=== PATIENT | male | born 1940 | race Caucasian/White ===

== ENCOUNTER → 2020-04-04 | Outpatient (CLI) | payer OTHER | END | disposition home or self-care (01) | LOC: RAD 12:56 | PROVIDERS: ATTEND Student in an Organized Health Care Education/Training Program | DX: K44.9 Diaphragmatic hernia without obstruction or gangrene (principal); K22.8 Other specified diseases of esophagus | CPT/HCPCS: 74220 ==

== ENCOUNTER 2020-06-29 18:06 | Inpatient (IN) | payer MEDICARE ==
[~2020-06-29] VITALS: Ht 172.7 cm; Wt 74.1 kg
[2020-06-29 18:19] LABS: BASOPHILS # (AUTO) 0.03 x10^3/uL (0-0.1); BASOPHILS % (AUTO) 0 % (0-1); EOSINOPHILS # (AUTO) 0.13 x10^3/uL (0-0.4); EOSINOPHILS % (AUTO) 1 % (1-7); LYMPHOCYTES % (AUTO) 19 % (22-44); MD NO; MEAN CORPUSCULAR HEMOGLOBIN 32.3 pg (27.5-34.5); MEAN CORPUSCULAR HGB CONC 33.5 g/dL (33.2-36.2); MEAN PLATELET VOLUME 7.8 fL (7.4-10.4); MONOCYTES % (AUTO) 7 % (2-9); NEUTROPHILS # (AUTO) 8.63 x10^3/uL (1.8-6.8); NEUTROPHILS % (AUTO) 73 % (42-75); PLATELET COUNT 203 x10^3/uL (130-400); RED BLOOD COUNT 5.11 x10^6/uL (4.38-5.82); RED CELL DISTRIBUTION WIDTH 13.9 % (9.4-14.8)
[2020-06-29] MEDS ORDERED: OMNIPAQUE 350 MG/ML, 100ML BOTTLE ONE (18:28)
[2020-06-29 18:30] LABS: INTERNATIONAL NORMALIZED RATIO 0.99 (0.93-1.1); PROTHROMBIN TIME 10.2 Seconds (9.6-11.5)
--- NOTE | 2020-06-29 18:41 | NUR ---
MD HAYNES IN ROOM ON EZDOCTOR MONITOR
--- NOTE | 2020-06-29 18:42 | NUR ---
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 PT HAS LEFT SIDE FACIAL DROOP AND LEFT LOWER LEG DEFICITS WITH DIFFICULTY SPEAKING/ SLURRED SPEACH. EMS REPORTS 135/78 HR 65 SPO2, 94% BS 117.
[2020-06-29] MEDS ORDERED: ALTEPLASE IV ONE (19:00)
[2020-06-29] MEDS ORDERED: ALTEPLASE 7 MG in SYRINGE 1 EA IVPush ONE (19:00)
--- NOTE | 2020-06-29 19:00 | NUR ---
ASSUMED CARE OF THIS PATIENT AT THIS TIME, RECIEVED REPORT FROM THANH. PT HAS NIH OF 6 AT THIS TIME FOR SLURRED SPEECH AND LEFT SIDED WEAKNESS AND FACIAL DROOP. OTHERWISE NEURO IS INTACT.
--- NOTE | 2020-06-29 19:46 | NUR ---
1930 ACTIVASE STOPPED DUE TO ACUTE NEURO CHANGES. INCREASED SLURRED SPEECH AND LEFT SIDED WEAKNESS.
--- NOTE | 2020-06-29 19:52 | NUR ---
[address], PT RECIEIVING CT.
--- NOTE | 2020-06-29 19:52 | NUR ---
1951 PTS [facility]PA RESTARTED RADIAOLOGIST CALLED AND INFORMED OF NO ACTIVE BLEED.
--- NOTE | 2020-06-29 19:55 | NUR ---
PT IS REPORTING THAT HIS PIN AND NEEDLES RESOLVE
[2020-06-29] MEDS ORDERED: FAMO20TA7 PO (20:07)
[2020-06-29] MEDS ORDERED: ESCI20TA PO (20:07)
[2020-06-29] MEDS ORDERED: NEO OP (20:07)
[2020-06-29] MEDS ORDERED: [UNRECOGNIZED DRUG - OTHER] OP (20:07)
[2020-06-29] MEDS ORDERED: BUDE10.26 INH (20:07)
[2020-06-29] MEDS ORDERED: DEXAMETHASONE OP (20:07)
[2020-06-29] MEDS ORDERED: FLUT16SP24 NAS (20:07)
[2020-06-29] MEDS ORDERED: CHOL10003 PO (20:07)
[2020-06-29] MEDS ORDERED: ASPI-515 PO (20:07)
[2020-06-29] MEDS ORDERED: CALC-545 PO (20:07)
[2020-06-29] MEDS ORDERED: [UNRECOGNIZED DRUG - CODE] PO (20:07)
[2020-06-29] MEDS ORDERED: ALBU0.63 NEB (20:07)
[2020-06-29] MEDS ORDERED: OMEP-110 PO (20:20)
[2020-06-29] MEDS ORDERED: PRED5TAB PO (20:20)
[2020-06-29] MEDS ORDERED: ROSU40TA PO (20:20)
[2020-06-29] MEDS ORDERED: PRED5DRO20 EACHEYE (20:20)
--- NOTE | 2020-06-29 20:20 | NUR ---
DR. CHAUDHRY TO BEDSIDE AT THIS TIME.
--- NOTE | 2020-06-29 20:23 | NUR ---
At this time this RN is not comfortable clearing patient to drink. Pt consistenly clearing secretions. Pt also has cough. 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
--- NOTE | 2020-06-29 20:40 | NUR ---
Pt resting in room, awaiting ccu bed at this time.
--- NOTE | 2020-06-29 20:45 | NUR ---
PT SPEECH IS CLEAR AND ABLE TO MOVE LEGS VERY WELL.
[2020-06-29] MEDS ORDERED: LABETALOL 5MG/ML, 20ML IV PRN (21:00)
[2020-06-29] MEDS ORDERED: morphine SULFATE 10 MG/ML, 1ML IVPush PRN (21:00)
[2020-06-29] MEDS ORDERED: ONDANSETRON 2MG/ML, 2ML IVPush PRN (21:00)
[2020-06-29] MEDS ORDERED: ACETAMINOPHEN 325 MG TABLET PO PRN (21:00)
--- NOTE | 2020-06-29 21:38 | NUR ---
REPORT TO TITO THOMAS
[2020-06-29] MEDS: ATORVASTATIN 80 MG TABLET PO SCH (21:41)
[2020-06-29] MEDS: FAMOTIDINE 20 MG TABLET PO SCH (21:41)
[2020-06-29 22:04] VITALS: BP 155/75
[2020-06-29 22:15] VITALS: BP 155/75
[2020-06-29 23:12] LABS: TROPONIN I < 0.015 ng/mL (0.000-0.045)
[2020-06-29 23:15] VITALS: BP 143/80
[2020-06-30] VITALS (21 sets, daily range): BP systolic 119–157; BP diastolic 63–97
[2020-06-30 04:43] LABS: CHOLESTEROL, TOTAL 171 mg/dL (140-239); HDL CHOL % 50 % (26-37); HDL CHOLESTEROL (DIRECT) 85 mg/dL (40-60); LDL CHOLESTEROL,CALCULATED 68 mg/dL (54-169); LDL/HDL RATIO 0.8 (0.5-3.0); TRIGLYCERIDES 89 mg/dL (50-200); TROPONIN I < 0.015 ng/mL (0.000-0.045); VLDL CHOLESTEROL 18 mg/dL (0-25)
[2020-06-30] MEDS: OMEPRAZOLE 20 MG CAPSULE.DR PO SCH (10:11)
[2020-06-30] MEDS: ESCITALOPRAM 10MG TABLET PO SCH (10:12)
[2020-06-30] MEDS: ATORVASTATIN 80 MG TABLET PO SCH (20:38)
[2020-06-30] MEDS: FAMOTIDINE 20 MG TABLET PO SCH (20:38)
[2020-07-01 01:10] VITALS: BP 121/74
[2020-07-01 04:00] VITALS: BP 126/79
[2020-07-01 05:28] VITALS: BP 114/76
[2020-07-01 07:07] VITALS: BP 124/77
[2020-07-01] MEDS: ESCITALOPRAM 10MG TABLET PO SCH (07:50)
[2020-07-01] MEDS: OMEPRAZOLE 20 MG CAPSULE.DR PO SCH (07:50)
[2020-07-01] MEDS ORDERED: ASPI-515 PO (11:14)
[2020-07-01] MEDS ORDERED: FLU VACC QS2020-21(6MOS UP)/PF 60MCG/0.5 ML SYR IM-VACC ONE (12:00)
[2020-07-01] MEDS ORDERED: FAMOTIDINE 20 MG TABLET PO SCH (21:00)
[2020-07-01] MEDS ORDERED: FAMOTIDINE 40 MG TABLET PO SCH (21:00)
== END 2020-07-01 13:16 | disposition home or self-care (01) | DRG 62 ==
LOC: ED 18:40 → EDIP 18:53 → MERGE 18:53 → CCU 21:53 → 4WST 06-30 20:07 → DCLOUNGE 07-01 12:58
PROVIDERS: ADMIT Family Medicine; ATTEND Internal Medicine
DX: I63.9 Cerebral infarction, unspecified (principal); G81.94 Hemiplegia, unspecified affecting left nondominant side; F10.20 Alcohol dependence, uncomplicated; E78.5 Hyperlipidemia, unspecified; K21.9 Gastro-esophageal reflux disease without esophagitis; K46.9 Unspecified abdominal hernia without obstruction or gangrene; R13.13 Dysphagia, pharyngeal phase; Z79.899 Other long term (current) drug therapy
CPT/HCPCS: 36415; 37195; 70450; 70496; 70498; 70551; 80047; 80061; 83036; 84484; 85025; 85610; 85730; 87081; 90686; 93005; 93306; 99285; G0378; J2997; Q9967; 92523-GN; J7512